=== PATIENT | male | born 1945 | race African-American/Black ===

== ENCOUNTER → 2018-09-20 | Outpatient (CLI) | payer MEDICARE, OTHER ==
[~2018-09-20] MED LIST: AMLO5TAB10 PO; ATEN50TA PO; CYCL5TAB PO; GLIM4TAB2 PO; METF500T16 PO; TAMS0.4C2 PO; VALS1TAB14 PO
--- NOTE | 2018-09-20 11:39 | CARD ---
MR#: [id number] Date of Study: 09/20/2018 Ordering Physician: ROCK MATA, Referring Physician: ROCK MATA, Tech: Mariella Amador APPROVED REPORT EXAM: Two-dimensional and M-mode echocardiogram with Doppler and color Doppler. Other Information Quality : AverageHR: 87bpm Rhythm : NSRTechnically limited study due to body habitus. INDICATION Dyspnea Fatigue RISK FACTORS Hypertension Hyperlipidemia Diabetes 2D DIMENSIONS RVDd2.6 (2.9-3.5cm)Left Atrium(2D)3.5 (1.6-4.0cm) IVSd1.1 (0.7-1.1cm)Aortic Root(2D)3.1 (2.0-3.7cm) LVDd5.3 (3.9-5.9cm)LVOT Diameter2.2 (1.8-2.4cm) PWd1.0 (0.7-1.1cm)LVDs2.5 (2.5-4.0cm) FS (%) 53.1 %SV113.9 ml LVEF(%)83.7 (>50%) Aortic Valve AoV Peak Lex.149.8cm/sAoV VTI27.9cm AO Peak GR.9.0mmHgLVOT Peak Lex.146.7cm/s LVOT VTI 30.03cmAO Mean GR.4mmHg KORY (VMAX)2.00wj0OZN (VTI)3.98cm2 Mitral Valve MV E Lllhdaqu949.8cm/sMV DECEL BCCE445vh MV A Nxopsqyv36.2cm/sMV NNX68cm E/A Ratio1.2MVA (PHT)3.21cm2 TDI E/Lateral E'10.7E/Medial E'9.5 Pulmonary Valve PV Peak Nbpzmdci009.3cm/sPV Peak Grad.7mmHg Tricuspid Valve RAP RMUEWNTB8kaZwRY Peak Gr.21mmHg VCDM22wkVt Pulmonary Vein S1 Ujsqkcbo92.8cm/sD2 Azffzxbn06.9cm/s PVa fgtoyvyp382uatn LEFT VENTRICLE The left ventricle is normal size. There is normal left ventricular wall thickness. The left ventricu lar systolic function is normal and the ejection fraction is within normal range. The Ejection Fracti on is 50-55%. There is normal LV segmental wall motion. The left ventricular diastolic function and f illing is normal for age. RIGHT VENTRICLE The right ventricle is normal size. There is normal right ventricular wall thickness. The right ventr icular systolic function is normal. ATRIA The left atrium size is normal. The right atrium size is normal. The interatrial septum is intact wit h no evidence for an atrial septal defect or patent foramen ovale as noted on 2-D or Doppler imaging. AORTIC VALVE The aortic valve is thickened but opens well. Doppler and Color Flow revealed no significant aortic r egurgitation. There is no significant aortic valvular stenosis. MITRAL VALVE The mitral valve is normal in structure and function. There is no evidence of mitral valve prolapse. There is no mitral valve stenosis. Doppler and Color Flow revealed no mitral valve regurgitation note d. TRICUSPID VALVE The tricuspid valve is normal in structure and function. Doppler and Color Flow revealed no tricuspid valve regurgitation noted. There is no tricuspid valve stenosis. PULMONIC VALVE The pulmonic valve is not well visualized. Doppler and Color Flow revealed no pulmonic valvular regur gitation. GREAT VESSELS The aortic root is normal in size. The IVC is normal in size and collapses >50% with inspiration. PERICARDIAL EFFUSION There is no evidence of significant pericardial effusion. Critical Notification Critical Value: No <Conclusion> The left ventricular systolic function is normal and the ejection fraction is within normal range. Th e Ejection Fraction is 50-55%. There is normal LV segmental wall motion. Signed by : David Nayak, Electronically Approved : 09/20/2018 11:38:58
== END | disposition home or self-care (01) ==
LOC: ECHO 09:09
PROVIDERS: ATTEND Nurse Practitioner Gerontology
DX: R06.00 Dyspnea, unspecified (principal); R06.02 Shortness of breath; R53.83 Other fatigue
CPT/HCPCS: 93306

== ENCOUNTER → 2018-12-04 | Outpatient (CLI) | payer MEDICARE, OTHER ==
--- NOTE | 2018-12-05 09:48 | RAD ---
Bilateral lower extremity arterial duplex ultrasound. 12/04/2018 COMPARISON STUDY: None INDICATION: Bilateral lower extremity pain COMPARISON STUDY: None TECHNIQUE: Ultrasound evaluation of the major arteries of the bilateral lower extremities was performed including color Doppler imaging, with spectral analysis. FINDINGS: Diffuse atherosclerotic vascular disease is present. On the right no evidence of high-grade stenosis, aneurysm, or occlusion is identified. On the left blunted monophasic flow seen within the anterior tibial artery which could represent hemodynamically significant stenosis. Remaining arteries appear grossly patent. IMPRESSION: 1.Diffuse atherosclerotic chronic vascular disease. 2. No definitive high-grade stenosis or occlusion is identified. 3. Possible least moderate narrowing of the anterior tibial artery on the left. Electronically signed by: Jostin Li MD (12/04/2018 3:42 PM) [facility]
--- NOTE | 2018-12-05 22:03 | RAD ---
MR#: [id number] Date of Study: 12/04/2018 Ordering Physician: DEB CHEEK, Referring Physician: DEB CHEEK, Tech: CATHY Webb, RDMS, RTR APPROVED REPORT Patient Location : OUT-PATIENT Indications Lower Extremity Pain : htn Past History Diabetes Greater Saphenous Veins (GSV) Significant venous relux noted in the RIGHT GSV at the following levels : Superficial Femoral Junctio n Significant venous relux noted in the LEFT GSV at the following levels : Superficial Femoral Junction Accessory Veins Right Anterior Accessory Vein : Present : No Reflux : No Leftt Anterior Accessory Vein : Present : Yes Reflux : No Right Posterior Accessory Vein : Present : No Reflux : No Left Posterior Accessory Vein : Present : No Reflux : No Findings Grayscale images of the bilateral saphenofemoral junctions, greater and lesser saphenous veins do not show any evidence of thrombus. The right great saphenous vein at the saphenofemoral junction measures approximately 9.4 mm. There is reflux noted only at the level of the saphenofemoral junction and this is not seen throughout the re st of the great saphenous vein. The reflux time is 2 seconds. The left great saphenous vein at the saphenofemoral junction measures approximately 7.9 mm. There is reflux noted only at the level of the saphenofemoral junction and this is not noted throughout the re st of the great saphenous vein. The reflux time is 1.5 seconds. The bilateral lesser saphenous veins do not show any evidence of reflux. Critical Notification Critical Value: No <Conclusion> 1. Positive for reflux in the bilateral saphenofemoral junctions but not evident in the greater saphe nous veins. Clinical correlation recommended. Signed by : David Nayak, Electronically Approved : 12/05/2018 22:02:46
== END | disposition home or self-care (01) ==
LOC: US 12:06
PROVIDERS: ATTEND Internal Medicine Cardiovascular Disease
DX: I70.293 Other atherosclerosis of native arteries of extremities, bilateral legs (principal); I10 Essential (primary) hypertension; E11.9 Type 2 diabetes mellitus without complications
CPT/HCPCS: 93923; 93970

== ENCOUNTER 2019-02-19 06:35 | Outpatient (CLI) | payer MEDICARE, OTHER ==
[2019-02-19] VITALS (13 sets, daily range): BP systolic 143–192; BP diastolic 54–90
[~2019-02-19] VITALS: Ht 177.8 cm; Wt 111.1 kg
[2019-02-19] MEDS ORDERED: IV 1/2 NORMAL SALINE 1,000 ML IV SCH ×2 (07:13→09:21)
[2019-02-19] MEDS ORDERED: IODIXANOL 320 MG/ML 100 ML VIAL. ONE (07:39)
[2019-02-19] MEDS ORDERED: LIDOCAINE 1% Multi-Dose 20 ML VIAL. ONE (07:40)
[2019-02-19] MEDS ORDERED: INSU100I32 SQ (07:45)
[2019-02-19] MEDS ORDERED: ASPI-630 PO (07:45)
[2019-02-19 08:02] LABS: HEMATOCRIT 29.5 % (39.0-53.0); HEMOGLOBIN 9.1 g/dL (13.0-17.5); RED BLOOD COUNT 4.63 x10^6/uL (4.30-5.70); WHITE BLOOD COUNT 8.3 x10^3/uL (4.0-11.0)
[2019-02-19 08:11] LABS: PROTHROMBIN TIME PATIENT 13.1 SEC (11.7-14.0)
[2019-02-19] MEDS ORDERED: fentaNYL PF VIAL 100 MCG/2 ML VIAL ONE (08:17)
[2019-02-19] MEDS ORDERED: MIDAZOLAM HCL/PF 2 MG/2 ML VIAL. ONE (08:17)
[2019-02-19 08:18] LABS: CALCIUM 8.7 mg/dL (8.5-10.1); CREATININE 1.2 mg/dL (0.7-1.3); GFR 71.8; POTASSIUM 3.5 mmol/L (3.5-5.1)
[2019-02-19] MEDS ORDERED: fentaNYL PF VIAL 100 MCG/2 ML VIAL IV ONE (09:00)
[2019-02-19] MEDS ORDERED: MIDAZOLAM HCL/PF 2 MG/2 ML VIAL. IV ONE (09:00)
[2019-02-19] MEDS ORDERED: LIDOCAINE 1% Multi-Dose 20 ML VIAL. INJ ONE (09:00)
[2019-02-19] MEDS ORDERED: IODIXANOL 320 MG/ML 100 ML VIAL. IART ONE (09:00)
--- NOTE | 2019-02-19 09:23 | PDOC ---
MODERATE SEDATION ASSESSMENT RISKS/ALTERNATIVES Risks/Alternatives Risks and alternatives of this type of sedation and procedure discussed with: RISK/ALTERNATIVES: Patient H & P ON CHART H & P H & P on chart and reviewed for co-morbid conditions and appropriate labs. H&P ON CHART: Yes STATUS PREG STATUS ASSESSED: N/A MEDS/ALLERGIES REVIEWED Meds/Allergies Reviewed Medications and Allergies including time and route of recently administered narcotics and sedatives. MEDS/ALLERGIES REVIEWED: Yes ASA RATING ASA RATING: II AIRWAY ASSESSMENT Airway Assessment Airway patency, oral function limitations, presence of caps, crowns, dentures, partials, and ability to extend neck assessed. AIRWAY ASSESSMENT: Yes MALLAMPATI SCORE MALLAMPATI SCORE: II PRE-SEDATION ASSESSMENT PRE-SEDATION ASSESSMENT: Yes DEB CHEEK MD Feb 19, 2019 09:23
[2019-02-19] MEDS ORDERED: NITROGLYCERIN SUBLINGUAL 0.4 MG BOTTLE OF 25. SL PRN (09:30)
--- NOTE | 2019-02-19 09:34 | CARD ---
MR#: [id number] Date of Study: 02/19/2019 Ordering Physician: DEB CHEEK Referring Physician: Agapito ANAYA: Neyda Mora APPROVED REPORT Technologist: Neyda Mora Nurse: Re Agosto Procedure(s) performed: Aortogram with bilateral lower extremity runoff fl time: 1.7 dose: 95 gy/cm2 contrast: 66 ml sedation: 30 min INDICATION The indication(s) include : Peripheral artery disease. PROCEDURE NARRATIVE After explaining the risks, benefits and alternative options, informed consent was obtained from demario ent. Patient was brought to the cardiac [employer] and his right groin was prepped and draped in the us ual fashion. 20 mL of 2% lidocaine was infiltrated into the skin and subcutaneous tissues for local a nesthesia. Arterial access was obtained the right common femoral artery and a 5 Chinese sheath was ins erted. 5 Chinese pigtail catheter was used to perform aortogram with bilateral lower extremity runoff. Patient tolerated the procedure well. Hemostasis was achieved using mynx closure device. There were no immediate complications. FINDINGS 1. No significant stenosis involving the distal descending aorta 2. No significant stenosis involving bilateral common and external iliac arteries 3. No significant stenosis involving bilateral common femoral and superficial femoral arteries 4. No significant stenosis involving bilateral popliteal arteries. There is three vessel runoff belo w the knee proximally. The mid to distal segments were not well visualized. Conclusion No significant major peripheral artery stenosis Recommendations Vascular risk factor modification Signed by : Deb Cheek, Electronically Approved : 02/19/2019 09:34:41
[2019-02-19] MEDS ORDERED: ACETAMINOPHEN 500 MG TABLET PO ONE (11:00)
[2019-02-19] MEDS ORDERED: amLODIPine BESYLATE 5 MG TABLET PO SCH (11:30)
[2019-02-19] MEDS ORDERED: hydroCHLOROthiazide 25 MG TABLET PO SCH (11:30)
[2019-02-19] MEDS ORDERED: ATENOLOL 50 MG TABLET. PO SCH (11:30)
[2019-02-19] MEDS ORDERED: LOSARTAN POTASSIUM 50 MG TABLET. PO SCH (11:30)
--- NOTE | 2019-02-19 12:23 | NUR ---
Discharge Note: DOMINIK MOLINA JR Discharge instructions and discharge home medications reviewed with Patient and a copy given. All questions have been answered and understanding verbalized. The following instructions and handouts were given: groin site care and moderate sedation. Discontinued lines and drains: IV site and groin site intact. Patient discharged to home with spouse and discharge instructions. Addendum: 02/19/19 at 1226 by JOHNATHAN MCKENNA RN Amended: Links added.
== END 2019-02-19 12:33 | disposition home or self-care (01) ==
LOC: CCL 06:35
PROVIDERS: ATTEND Internal Medicine Cardiovascular Disease
DX: I73.9 Peripheral vascular disease, unspecified (principal); I10 Essential (primary) hypertension; E11.9 Type 2 diabetes mellitus without complications; E78.5 Hyperlipidemia, unspecified; Z79.84 Long term (current) use of oral hypoglycemic drugs; Z79.01 Long term (current) use of anticoagulants
CPT/HCPCS: 36200; 36415; 75716; 80048; 85027; 85610; 85730; C1713; C1769; C1892; J1644; J2250; J3010; Q9967; 75630; 99152; 99153; G0269

== ENCOUNTER → 2019-05-11 | Outpatient (CLI) | payer MEDICARE, OTHER ==
[2019-02-19 12:15] VITALS: BP 181/90
[~2019-05-11] MED LIST changes: +ASPI-630 PO; -GLIM4TAB2 PO; +GLIM4TAB4 PO; +INSU100I32 SQ
--- NOTE | 2019-05-11 14:48 | RAD ---
EXAM: Lower extremity arterial Doppler sonogram with ankle-brachial indices (SERA). HISTORY: Pain. TECHNIQUE: Doppler sonographic evaluation of the lower extremities was performed and pressure readings were assessed. FINDINGS: Right brachial pressure: 131 mmHg Left brachial pressure: 133 mmHg Right ankle pressure: 146 mmHg Right SERA: 1.1 Left ankle pressure: 164 mmHg Left SERA: 1.2 There are triphasic waveforms within the right posterior tibial and bilateral dorsalis pedis arteries and there is a biphasic waveform within the left posterior tibial artery. No severe stenosis or occlusion is seen. IMPRESSION: Normal bilateral ankle-brachial indices. Electronically signed by: Zahraa Epps MD (05/11/2019 2:45 PM) [place] [id number]
== END | disposition home or self-care (01) ==
LOC: US 13:17
PROVIDERS: ATTEND Orthopaedic Surgery Sports Medicine
DX: M25.561 Pain in right knee (principal); M25.562 Pain in left knee; E11.9 Type 2 diabetes mellitus without complications; E78.5 Hyperlipidemia, unspecified; I10 Essential (primary) hypertension; Z79.84 Long term (current) use of oral hypoglycemic drugs; Z79.01 Long term (current) use of anticoagulants
CPT/HCPCS: 93922

== ENCOUNTER → 2019-09-25 | Outpatient (CLI) | payer MEDICARE, OTHER ==
[2019-02-19 12:15] VITALS: BP 181/90
[~2019-09-25] MED LIST changes: -GLIM4TAB4 PO; +GLIM4TAB8 PO
[2019-09-25 09:38] LABS: BASO # 0.1 x10^3/uL (0.0-0.2); BASO % 1 % (0-3); EOS # 0.2 x10^3/uL (0.0-0.7); EOS % 3 % (0-3); HEMATOCRIT 32.5 % (39.0-53.0); LYMPH # 1.7 x10^3/uL (1.0-4.8); LYMPH % 26 % (24-48); MEAN CORPUSCULAR HEMOGLOBIN 18 pg (25-35); MEAN CORPUSCULAR HGB CONC 31 g/dL (31-37); MEAN CORPUSCULAR VOLUME 59 fL (79-100); MONO # 0.5 x10^3/uL (0.0-1.1); MONO % 8 % (0-9); NEUT % 62 % (31-73); PLATELET COUNT 442 x10^3/uL (140-400); RED BLOOD COUNT 5.52 x10^6/uL (4.30-5.70); RED CELL DISTRIBUTION WIDTH 20.1 % (11.5-14.5); WHITE BLOOD COUNT 6.4 x10^3/uL (4.0-11.0)
[2019-09-25 11:37] LABS: ANISOCYTOSIS MOD; HYPOCHROMIA MARKED; MICROCYTOSIS MARKED; OVALOCYTES OCC
[2019-09-25 13:47] LABS: PLT ESTIMATE ADEQUATE (ADEQUATE)
== END ==
LOC: LAB 08:59
PROVIDERS: ATTEND Internal Medicine Gastroenterology
DX: D50.9 Iron deficiency anemia, unspecified (principal)
CPT/HCPCS: 36415; 82607; 82728; 82746; 83540; 85025

== ENCOUNTER → 2020-06-03 | Outpatient (CLI) | payer MEDICARE, OTHER ==
[2019-02-19 12:15] VITALS: BP 181/90
[~2020-06-03] MED LIST changes: +AMLO-186 PO; -AMLO5TAB10 PO; +CETI10TA16 PO; +FURO40TA4 PO; +OMEP40CA45 PO
--- NOTE | 2020-06-03 14:13 | CARD ---
MR#: [id number] Date of Study: 06/03/2020 Ordering Physician: DEB AGUILAR, Referring Physician: DEB AGUILAR, Tech: Katelyn Ornelas CHAYO APPROVED REPORT EXAM: Two-dimensional and M-mode echocardiogram with Doppler and color Doppler. Other Information Quality : AdequateHR: 77bpm Rhythm : NSRTechnically limited study due to obesity and lung interference INDICATION DM, HTN. 2D DIMENSIONS RVDd4.2 (2.9-3.5cm)IVSd1.1 (0.7-1.1cm) Aortic Root(2D)3.2 (2.0-3.7cm)LVDd4.7 (3.9-5.9cm) LVOT Diameter2.1 (1.8-2.4cm)PWd1.0 (0.7-1.1cm) LVDs3.4 (2.5-4.0cm)FS (%) 27.0 % SV52.5 mlLVEF(%)52.6 (>50%) Aortic Valve AoV Peak Lex.177.6cm/Janie Peak GR.12.6mmHg LVOT Peak Lex.125.6cm/sAVA (VMAX)2.38cm2 Mitral Valve MV E [place]368.3cm/sMV DECEL CUEA677cn MV A Lczvznkg257.0cm/sE/A Ratio1.2 MV A Pbeudogq028rr Tricuspid Valve TR P. Thjmyuak725yl/sRAP MAJKMJNW1pnYf TR Peak Gr.23jmDjXUVE74iuSe Pulmonary Vein S1 Hdfbnvmy33.0cm/sD2 Oubqclei05.8cm/s LEFT VENTRICLE The left ventricle is normal size. There is normal left ventricular wall thickness. The left ventricu lar systolic function is normal. The Ejection Fraction is 60-65%. There is normal LV segmental wall m otion. RIGHT VENTRICLE The right ventricle is normal size. The right ventricular systolic function is normal. ATRIA The left atrium size is normal. The right atrium size is normal. The interatrial septum is intact wit h no evidence for an atrial septal defect or patent foramen ovale as noted on 2-D or Doppler imaging. AORTIC VALVE The aortic valve is normal in structure and function. Leaflets are mildly calcified. Doppler and Bartelso r Flow revealed no significant aortic regurgitation. There is no significant aortic valvular stenosis . MITRAL VALVE The mitral valve is normal in structure and function. Mitral annular calcification is mild. There is no mitral valve stenosis. Doppler and Color Flow revealed no mitral valve regurgitation noted. TRICUSPID VALVE The tricuspid valve is normal in structure and function. Trace tricuspid regurgitation. Estimated PAP is 25-30mmHg. PULMONIC VALVE The pulmonic valve is not well visualized. GREAT VESSELS The aortic root is normal in size. Ascending aorta is not well visualized. The IVC is normal in size and collapses >50% with inspiration. PERICARDIAL EFFUSION There is no evidence of significant pericardial effusion. Critical Notification Critical Value: No <Conclusion> The left ventricular systolic function is normal. The Ejection Fraction is 60-65%. There is normal LV segmental wall motion. Trace tricuspid regurgitation. Estimated PAP is 25-30mmHg. There is no evidence of significant pericardial effusion. Signed by : Deb Aguilar, Electronically Approved : 06/03/2020 14:13:30
== END ==
LOC: ECHO 07:49
PROVIDERS: ATTEND Internal Medicine Cardiovascular Disease
DX: I08.0 Rheumatic disorders of both mitral and aortic valves (principal); E11.9 Type 2 diabetes mellitus without complications
CPT/HCPCS: 93306